=== PATIENT | female | born 1990 | race Hispanic/Latino ===

== ENCOUNTER 2016-10-08 18:18 | Emergency (ER) | payer OTHER ==
[2016-10-08 18:22] VITALS: BMI 21.6
[2016-10-08 18:27] VITALS: TEMP 98.6
[2016-10-08] MEDS ORDERED: Sodium Chloride 0.9% 1,000 ML IV STA (18:46)
--- NOTE | 2016-10-08 18:54 | ED PDOC ---
Arrival/HPI - General Chief Complaint: Cough, Cold, Congestion Time Seen by Provider: 10/08/16 18:43 Historian: Patient - History of Present Illness Narrative History of Present Illness (Text): 10/08/16 18:55 A 25 year old female presents to the emergency department complaining of productive cough and shortness of breath. Patient reports she has been using a nasal drip. Patient notes a fever and sore throat last week, currently resolved. Patient reports a headache, but denies any other complaints at this time. PMD: None Symptom Onset: Sudden Symptom Course: Unchanged Activities at Onset: Rest Context: Home Past Medical History - Provider Review Nursing Documentation Reviewed: Yes - Infectious Disease Hx of Infectious Diseases: None - Cardiac Hx Cardiac Disorders: No - Pulmonary Hx Respiratory Disorders: No - Neurological Hx Neurological Disorder: No - Musculoskeletal/Rheumatological Hx Falls: No Hx Fractures: Yes - Psychiatric Hx Substance Use: No - Anesthesia Hx Anesthesia: No Hx Anesthesia Reactions: No Hx Malignant Hyperthermia: No Family/Social History - Physician Review Nursing Documentation Reviewed: Yes Family/Social History: No Known Family HX Smoking Status: Never Smoked Hx Alcohol Use: Yes Frequency of alcohol use: Socially Hx Substance Use: No Allergies/Home Meds Allergies/Adverse Reactions: Allergies No Known Allergies Allergy (Verified 02/10/16 14:45) Home Medications: Home Meds Medication Instructions Recorded Confirmed Biotin [Biotin] 1 cap PO DAILY 10/08/16 10/08/16 Calcium Carbonate [Calcium] 1 tab PO DAILY 10/08/16 10/08/16 Garlic [Odor Free Garlic-X] 1 tab PO DAILY 10/08/16 10/08/16 Multivitamin [Multivitamins] 1 cap PO DAILY 10/08/16 10/08/16 [place]-3 Fatty Acids [Fish Oil] 1 cap PO DAILY 10/08/16 10/08/16 Review of Systems - Physician Review All systems were reviewed & negative as marked: Yes - Review of Systems Respiratory: SOB, Cough Neurological: Headache Physical Exam Vital Signs Reviewed: Yes Vital Signs Temp Pulse Resp BP Pulse Ox 10/08/16 18:26 98.6 F 76 18 119/82 99 Temperature: Afebrile Blood Pressure: Normal Pulse: Regular Respiratory Rate: Normal Appearance: Positive for: Well-Appearing, Non-Toxic, Comfortable Pain Distress: None Mental Status: Positive for: Alert and Oriented X 3 - Systems Exam Head: Present: Atraumatic, Normocephalic Pupils: Present: PERRL Extroacular Muscles: Present: EOMI Conjunctiva: Present: Normal Mouth: Present: Moist Mucous Membranes Neck: Present: Normal Range of Motion Respiratory/Chest: Present: Clear to Auscultation, Good Air Exchange. No: Respiratory Distress, Accessory Muscle Use Cardiovascular: Present: Regular Rate and Rhythm, Normal S1, S2. No: Murmurs Abdomen: Present: Normal Bowel Sounds. No: Tenderness, Distention, Peritoneal Signs Back: Present: Normal Inspection Upper Extremity: Present: Normal Inspection. No: Cyanosis, Edema Lower Extremity: Present: Normal Inspection. No: Edema Neurological: Present: GCS=15, CN II-XII Intact, Speech Normal Skin: Present: Warm, Dry, Normal Color. No: Rashes Psychiatric: Present: Alert, Oriented x 3, Normal Insight, Normal Concentration Medical Decision Making ED Course and Treatment: 10/08/16 18:51 Impression: A 25 year old female with cough and shortness of breath. Differential Diagnosis included but are not limited to: r/o pna. perc neg. pt well appearing speaking full sentnces, in nad Plan: -- EKG -- chest xray -- labs -- Urinalysis -- IV fluids -- Reassess and disposition Prior Visits: Notes and results from previous visits were reviewed. Patient last reported to the emergency department on 02/10/16 for evaluation of right forearm and hand dog bite. Hospitalized for multiple puncture wounds. Patient discharged on 02/13/16. Progress Notes: EKG: Ordered, reviewed, and independently interpreted the EKG. Rate : 68 BPM Rhythm : NSR Interpretation : No ST/T wave changes 10/08/16 20:10 pt reassesse.d perc neg on phone. cxr neg as read by me. stable for dc - Lab Interpretations Lab Results: 10/08/16 19:13 10/08/16 19:13 Lab Results 10/08/16 19:45: Urine Color Yellow, Urine Appearance Clear, Urine pH 7.5, Ur Specific [place] 1.020, Urine Protein Negative, Urine Glucose (UA) Negative, Urine Ketones Negative, Urine Blood Negative, Urine Nitrate Negative, Urine Bilirubin Negative, Urine Urobilinogen 0.2, Ur Leukocyte Esterase Negative, Urine HCG, Qual Negative 10/08/16 19:13: Sodium 138, Potassium 4.2, Chloride 106, Carbon Dioxide 24, Anion Gap 12, BUN 9, Creatinine 0.7, Est GFR ( Amer) > 60, Est GFR (Non- Af Amer) > 60, Random Glucose 87, Calcium 9.1, Total Bilirubin 0.3, AST 43 H, ALT 25, Alkaline Phosphatase 42, Total Protein 6.9, Albumin 4.0, Globulin 2.9, Albumin/Globulin Ratio 1.4 10/08/16 19:13: WBC 7.7, RBC 3.76, Hgb 11.9 L, Hct 35.8 L, MCV 95.2, MCH 31.6, MCHC 33.2, RDW 12.5, Plt Count 199, MPV 10.1, Gran % 60.3, Lymph % (Auto) 32.5, [place] % (Auto) 4.8, Eos % (Auto) 2.1, Baso % (Auto) 0.3, Gran # 4.63, Lymph # 2.5 , [place] # 0.4, Eos # 0.2, Baso # 0.02 I have reviewed the lab results: Yes - RAD Interpretation Radiology Orders: 10/08/16 18:46 CHEST PORTABLE [RAD] Stat - EKG Interpretation Interpreted by ED Physician: Yes Type: 12 lead EKG - Medication Orders Current Medication Orders: Discontinued Medications Sodium Chloride (Sodium Chloride 0.9%) 1,000 mls @ 999 mls/hr IV .Q1H1M STA Stop: 10/08/16 19:46 Last Admin: 10/08/16 19:00 Dose: 999 mls/hr - Scribe Statement The provider has reviewed the documentation as recorded by the Ru Rooney Provider Scribe Attestation: All medical record entries made by the Ru were at my direction and personally dictated by me. I have reviewed the chart and agree that the record accurately reflects my personal performance of the history, physical exam, medical decision making, and the department course for this patient. I have also personally directed, reviewed, and agree with the discharge instructions and disposition. Disposition/Present on Arrival - Present on Arrival Any Indicators Present on Arrival: No History of DVT/PE: No History of Uncontrolled Diabetes: No Urinary Catheter: No History of Decub. Ulcer: No History Surgical Site Infection Following: None - Disposition Have Diagnosis and Disposition been Completed?: Yes Diagnosis: Viral syndrome Disposition: HOME/ ROUTINE Disposition Time: 20:11 Condition: STABLE Discharge Instructions (ExitCare): Viral Syndrome (ED) Additional Instructions: please follow up with your doctor/clinic. return to emergency room with worsneing symptoms or concerns. Referrals: PCP,NO [Primary Care Provider] - Follow up with primary [facility] [place]] - Follow up with primary [facility] [Outside] - Follow up with primary
[2016-10-08 19:26] LABS: ADD MANUAL DIFF? NO
[2016-10-08 19:46] LABS: ALB/GLOB RATIO 1.4 (1.1-1.8); ALKALINE PHOSPHATASE 42 U/L (38-133); ALT/SGPT 25 U/L (7-56); AST/SGOT 43 U/L (15-39); BILIRUBIN,TOTAL 0.3 mg/dL (0.2-1.3); BLOOD UREA NITROGEN 9 mg/dL (7-21); CALCIUM 9.1 mg/dL (8.4-10.5); CARBON DIOXIDE 24 mmol/L (21-33); CHLORIDE 106 mmol/L (98-107); GFR AFRICAN-AMERICAN > 60; GLUCOSE,RANDOM 87 mg/dL (70-110); POTASSIUM 4.2 mmol/L (3.6-5.0); SODIUM 138 mmol/L (132-148); TOTAL PROTEIN 6.9 g/dL (5.8-8.3)
[2016-10-08 19:50] LABS: BASO # 0.02 K/mm3 (0.0-2.0); BASO % 0.3 % (0.0-3.0); EOS # 0.2 (0.0-0.7); EOS % 2.1 % (1.5-5.0); GRAN # 4.63 (1.4-6.5); GRAN % 60.3 % (50.0-68.0); HEMATOCRIT 35.8 % (36.0-48.0); LYMPH # 2.5 (1.2-3.4); LYMPH % 32.5 % (22.0-35.0); MEAN CELL VOLUME 95.2 fL (80.0-105.0); MEAN CORPUSCULAR HEMOGLOBIN 31.6 pg (25.0-35.0); MEAN CORPUSCULAR HGB CONC 33.2 g/dl (31.0-37.0); MEAN PLATELET VOLUME 10.1 fl (7.0-11.0); MONO # 0.4 (0.1-0.6); MONO % 4.8 % (1.0-6.0); PLATELET COUNT 199 10^3/uL (120.0-450.0); RED CELL DISTRIBUTION WIDTH 12.5 % (11.5-14.5); WHITE BLOOD COUNT 7.7 10^3/ul (4.5-11.0)
[2016-10-08 19:54] LABS: PH,URINE 7.5 (4.7-8.0); URINE BILIRUBIN NEGATIVE (NEGATIVE); URINE BLOOD NEGATIVE (NEGATIVE); URINE GLUCOSE (UA) NEGATIVE (NEGATIVE); URINE KETONE NEGATIVE (NEGATIVE); URINE LEUKOCYTE ESTERASE NEGATIVE Leu/uL (NEGATIVE); URINE PROTEIN NEGATIVE mg/dL (<30 mg/dL); URINE UROBILINOGEN 0.2 E.U./dL (<1 E.U./dL)
[2016-10-08 19:58] LABS: URINE APPEARANCE CLEAR (CLEAR); URINE COLOR YELLOW (YELLOW)
[2016-10-08 20:00] LABS: INR 0.99 (0.93-1.08); PARTIAL THROMBOPLASTIN TIME 29.5 Seconds (23.7-30.8)
[2016-10-08 20:32] VITALS: BP 121/80; PULSE 72; RESP 16; O2SAT 100
--- NOTE | 2016-10-09 09:52 | RAD ---
HISTORY: cough COMPARISON: No prior. FINDINGS: LUNGS: No active pulmonary disease. PLEURA: No significant pleural effusion identified, no pneumothorax apparent. CARDIOVASCULAR: Normal. OSSEOUS STRUCTURES: No significant abnormalities. VISUALIZED UPPER ABDOMEN: Normal. OTHER FINDINGS: None. IMPRESSION: No active disease.
--- NOTE | 2016-10-09 12:09 | CARD ---
APPROVED REPORT EKG Measurement Heart [id number] <Conclusion> Normal sinus rhythm Septal infarct, age undetermined Abnormal ECG
== END 2016-10-08 20:51 | disposition home or self-care (01) ==
LOC: ED 18:18
DX: B34.9 Viral infection, unspecified (principal)
CPT/HCPCS: 71010; 80053; 81003; 84703; 85025; 85610; 85730; 93005; 96360; 99284; J7040

== ENCOUNTER 2016-10-28 20:02 | Emergency (ER) | payer OTHER ==
[2016-10-28 20:02] VITALS: BMI 21.6
[2016-10-28 20:13] VITALS: TEMP 98.8
--- NOTE | 2016-10-28 21:28 | ED PDOC ---
Arrival/HPI - General Chief Complaint: Finger,Hand,&Wrist Time Seen by Provider: 10/28/16 20:31 Historian: Patient - History of Present Illness Narrative History of Present Illness (Text): 10/28/16 22:07 Patient c/o pain in the right hand from yesterday after she accidentally hit her hand against a hard surface. Symptom Course: Unchanged Quality: Aching Severity Level: 6 Past Medical History - Provider Review Nursing Documentation Reviewed: Yes - Travel History Have you recently traveled outside [place] w/in the past 3 mons?: No - Past History Past History: Non-Contributing - Infectious Disease Hx of Infectious Diseases: None - Cardiac Hx Cardiac Disorders: No - Pulmonary Hx Respiratory Disorders: No - Neurological Hx Neurological Disorder: No - Musculoskeletal/Rheumatological Hx Falls: No Hx Fractures: Yes - Psychiatric Hx Substance Use: No - Anesthesia Hx Anesthesia: No Hx Anesthesia Reactions: No Hx Malignant Hyperthermia: No Family/Social History - Physician Review Nursing Documentation Reviewed: Yes Family/Social History: No Known Family HX Smoking Status: Never Smoked Hx Alcohol Use: Yes Hx Substance Use: No Allergies/Home Meds Allergies/Adverse Reactions: Allergies No Known Allergies Allergy (Verified 02/10/16 14:45) Home Medications: Home Meds Medication Instructions Recorded Confirmed Biotin [Biotin] 1 cap PO DAILY 10/08/16 10/08/16 Calcium Carbonate [Calcium] 1 tab PO DAILY 10/08/16 10/08/16 Garlic [Odor Free Garlic-X] 1 tab PO DAILY 10/08/16 10/08/16 Multivitamin [Multivitamins] 1 cap PO DAILY 10/08/16 10/08/16 [place]-3 Fatty Acids [Fish Oil] 1 cap PO DAILY 10/08/16 10/08/16 Review of Systems - Physician Review All systems were reviewed & negative as marked: Yes - Review of Systems Musculoskeletal: Other (hand injury) Physical Exam Vital Signs Reviewed: Yes Vital Signs Temp Pulse Resp BP Pulse Ox 10/28/16 20:09 98.8 F 64 18 108/96 H 99 Temperature: Afebrile Blood Pressure: Normal Pulse: Regular Respiratory Rate: Normal Appearance: Positive for: Well-Appearing, Non-Toxic, Comfortable Pain Distress: None Mental Status: Positive for: Alert and Oriented X 3 - Systems Exam Head: Present: Atraumatic, Normocephalic Upper Extremity: Present: NORMAL PULSES, Tenderness (right hand over 5th metacarpal bone area), Swelling (right hand over 5th metacarpal bone area), Capillary Refill < 2s Neurological: Present: Normal Sensory Function, Normal Cerebellar Funct Psychiatric: Present: Alert, Oriented x 3, Normal Insight Medical Decision Making - RAD Interpretation Narrative RAD Interpretations (Text): 10/28/16 22:10 Right hand xray with minimally angulated fx of the 5th metacarpal bone. Radiology Orders: 10/28/16 20:31 HAND RIGHT 3 VIEWS [RAD] Stat - Procedure PROCEDURE NOTE (Text): 10/28/16 22:11 Ulnar gutter splint was applied by general service technician and checked by me. Patient was referred to Ortho for f/u. Disposition/Present on Arrival - Present on Arrival Any Indicators Present on Arrival: Yes History of DVT/PE: No History of Uncontrolled Diabetes: No Urinary Catheter: No History of Decub. Ulcer: No History Surgical Site Infection Following: None - Disposition Have Diagnosis and Disposition been Completed?: Yes Diagnosis: Fracture of fifth metacarpal bone Disposition: HOME/ ROUTINE Disposition Time: 21:28 Patient Plan: Discharge Patient Problems: Current Active Problems Problem Status Onset Fracture of fifth metacarpal bone Acute Condition: STABLE Discharge Instructions (ExitCare): Boxer Fracture (ED) Additional Instructions: Follow up with Orthopedist/Hand specialist within 1-2 days. Return to ED if feel worse. Prescriptions: oxyCODONE/Acetaminophen [Percocet 5/325 mg Tab] 1 tab PO QID PRN #20 tab PRN Reason: Pain traMADol [Ultram] 50 mg PO Q6 #30 tab Referrals: [facility] [Outside] - Follow up with primary [facility] [place] [Outside] - Follow up with primary
[2016-10-28 22:08] VITALS: BP 107/69; PULSE 65; RESP 16; O2SAT 100
--- NOTE | 2016-10-29 09:05 | RAD ---
PROCEDURE: Right Hand Radiographs. HISTORY: injury COMPARISON: 02/10/2016 FINDINGS: BONES: Interval comminuted minimally dorsally angulated fracture distal 5th metacarpal metaphysis. The proximal distal ulnar fracture suggests interval callus healing -incomplete - some residual fracture line still noted JOINTS: Normal. No osteoarthritic changes. SOFT TISSUES: Normal. OTHER FINDINGS: None. IMPRESSION: Acute 5th metacarpal fracture. Remote healing distal ulnar fracture
== END 2016-10-28 22:09 | disposition home or self-care (01) ==
LOC: ED 20:02
DX: S62.396A Other fracture of fifth metacarpal bone, right hand, initial encounter for closed fracture (principal); W22.8XXA Striking against or struck by other objects, initial encounter; Y93.89 Activity, other specified; Y92.89 Other specified places as the place of occurrence of the external cause

== ENCOUNTER 2016-12-18 10:27 | Emergency (ER) | payer OTHER ==
[2016-12-18 10:28] VITALS: BMI 21.6
[2016-12-18 10:39] VITALS: TEMP 98.7
[2016-12-18 11:13] VITALS: RESP 18; O2SAT 98
--- NOTE | 2016-12-18 11:56 | RAD ---
PROCEDURE: Right Hand Radiographs. HISTORY: hand injury COMPARISON: 10/28/2016 FINDINGS: BONES: There is an angulated recent fracture of the neck of the 5th metacarpal. There is some callus formation on the ventral surface of the fracture JOINTS: Normal. No osteoarthritic changes. SOFT TISSUES: Normal. OTHER FINDINGS: None. IMPRESSION: There is an angulated recent fracture of the neck of the 5th metacarpal. There is some callus formation on the ventral surface of the fracture
[2016-12-18 12:34] VITALS: BP 128/74; PULSE 68
--- NOTE | 2016-12-18 13:16 | ED PDOC ---
Arrival/HPI - General Historian: Patient EM Caveat: Acuity of Condition - History of Present Illness Time/Duration: > month Symptom Onset: Other (10/28/16) Symptom Course: Resolved Context: Home <Junior Ramirez - Last Filed: 12/18/16 16:36> <Lázaro Feliciano Y - Last Filed: 12/18/16 17:34> - General Chief Complaint: Medical Clearance Time Seen by Provider: 12/18/16 10:38 - History of Present Illness Narrative History of Present Illness (Text): Patient is a 26 year old female presents to ED asking for a work clearance note regarding 5th metacarpal fracture which occurred 6 weeks prior for which patient was seen at the [facility] [place] on 10/28/16. 12/18/16 14:55 12/18/16 16:35 (Junior Ramirez) Past Medical History - Provider Review Nursing Documentation Reviewed: Yes - Past History Past History: Non-Contributing - Infectious Disease Hx of Infectious Diseases: None - Cardiac Hx Cardiac Disorders: No - Pulmonary Hx Respiratory Disorders: No - Neurological Hx Neurological Disorder: No - Musculoskeletal/Rheumatological Hx Falls: No Hx Fractures: Yes - Psychiatric Hx Substance Use: No - Anesthesia Hx Anesthesia: No Hx Anesthesia Reactions: No Hx Malignant Hyperthermia: No <Junior Ramirez - Last Filed: 12/18/16 16:36> Family/Social History - Physician Review Nursing Documentation Reviewed: Yes Family/Social History: No Known Family HX Smoking Status: Never Smoked Hx Alcohol Use: Yes Hx Substance Use: No <Junior Ramirez - Last Filed: 12/18/16 16:36> Allergies/Home Meds <Junior Ramirez - Last Filed: 12/18/16 16:36> <Lázaro Feliciano Y - Last Filed: 12/18/16 17:34> Allergies/Adverse Reactions: Allergies No Known Allergies Allergy (Verified 12/18/16 10:39) Home Medications: Home Meds Medication Instructions Recorded Confirmed No Known Home Med 12/18/16 12/18/16 Review of Systems - Review of Systems Systems not reviewed;Unavailable: Acuity of Condition Constitutional: Normal. absent: Fatigue Eyes: Normal. absent: Vision Changes Respiratory: Normal. absent: SOB, Cough Cardiovascular: Normal. absent: Chest Pain, Palpitations Gastrointestinal: Normal. absent: Abdominal Pain, Nausea, Vomiting Musculoskeletal: Normal. absent: Arthralgias, Myalgias Skin: Normal. absent: Rash, Laceration Neurological: Normal. absent: Headache, Dizziness Endocrine: Normal Psychiatric: Normal <Junior Ramirez - Last Filed: 12/18/16 16:36> Physical Exam Vital Signs Reviewed: Yes Temperature: Afebrile Blood Pressure: Normal Pulse: Regular Respiratory Rate: Normal Appearance: Positive for: Well-Appearing, Non-Toxic, Comfortable Pain Distress: None Mental Status: Positive for: Alert and Oriented X 3 - Systems Exam Head: Present: Atraumatic, Normocephalic Extroacular Muscles: Present: EOMI Respiratory/Chest: Present: Clear to Auscultation, Good Air Exchange, Respiratory Distress Cardiovascular: Present: Regular Rate and Rhythm, Murmurs, Normal S1, S2 Abdomen: No: Tenderness, Distention, Normal Bowel Sounds Upper Extremity: No: Cyanosis, Edema, Swelling Lower Extremity: No: Normal ROM Neurological: Present: CN II-XII Intact Skin: Present: Warm, Dry Psychiatric: Present: Alert, Oriented x 3 <Junior Ramirez - Last Filed: 12/18/16 16:36> Medical Decision Making <Junior Ramirez - Last Filed: 12/18/16 16:36> <Lázaro Feliciano - Last Filed: 12/18/16 17:34> ED Course and Treatment: Assessment 26 year old female with previous 5th metacarpal fracture presenting today for medical clearance Plan - Xray; angular fracture of 5th metacarpal - Was discussed with patient that ortho would be consulted regarding fracture, patient stated she didn't have time to wait for ortho to see her because she had too many things to do today and stated that she just wanted a note stating she would be cleared to work. Patient was explained that this is against our policy, the emergency department does not write work clearance notes; especially considering the incident happened 6 weeks prior. Patient states that if ortho recommended surgery she would absolutely not have surgery regardless, further expressing her desire for a work clearance note. Patient was given option to be seen by ortho or get discharged without the note, patient opted to get discharged without the note. 12/18/16 13:38 (Junior Ramirez) Patient Seen With Resident: In agreement with resident note. Patient was seen and evaluated with resident, came up with plan and treatment together. noted that pt refused the splint placement as well in the ER 12/18/16 17:32 (Lázaro Feliciano Y) - RAD Interpretation Radiology Orders: 12/18/16 11:33 HAND RIGHT 3 VIEWS [RAD] Stat Disposition/Present on Arrival - Present on Arrival Any Indicators Present on Arrival: No History of DVT/PE: No History of Uncontrolled Diabetes: No Urinary Catheter: No History of Decub. Ulcer: No History Surgical Site Infection Following: None - Disposition Have Diagnosis and Disposition been Completed?: Yes Disposition Time: 14:30 Patient Plan: Discharge <Junior Ramirez - Last Filed: 12/18/16 16:36> - Present on Arrival Any Indicators Present on Arrival: No History of DVT/PE: No History of Uncontrolled Diabetes: No Urinary Catheter: No History of Decub. Ulcer: No - Disposition Have Diagnosis and Disposition been Completed?: Yes <Shanice Felicianoyovani Knight - Last Filed: 12/18/16 17:34> - Disposition Diagnosis: Hand fracture Disposition: HOME/ ROUTINE Condition: GUARDED Discharge Instructions (ExitCare): Hand Fracture (ED) Additional Instructions: follow up with orthopedics as instructed return to the ED with any worsening or concerning symptoms. Referrals: [facility] [place] [Outside] - Follow up with primary Edward Elder III, MD [Medical Doctor] - Follow up with primary Forms: [employer] (Serbian)
== END 2016-12-18 13:19 | disposition home or self-care (01) ==
LOC: ED 10:27
DX: S62.396D Other fracture of fifth metacarpal bone, right hand, subsequent encounter for fracture with routine healing (principal); W22.8XXD Striking against or struck by other objects, subsequent encounter